=== PATIENT | male | born 1965 | race Caucasian/White ===

== ENCOUNTER 2019-03-08 08:54 | Emergency (ER) | payer SELFPAY ==
[~2019-03-08] VITALS: Ht 188 cm; Wt 108.9 kg
--- NOTE | 2019-03-08 08:54 | NUR ---
Patient BIB [facility] for pre-booking medical screening exam, transferred to chair Busby RN evaluating patient.
[2019-03-08 08:56] VITALS: BP 139/75
--- NOTE | 2019-03-08 09:07 | NUR ---
BROUGHT IN BY OFFICE [facility] A PREBOOK---PT DENIES ANY MEDICAL PROBLEMS AT THIS TIME
--- NOTE | 2019-03-08 09:38 | NUR ---
Dr. Falk is evaluating the patient.
[2019-03-08 10:05] VITALS: BP 136/83
--- NOTE | 2019-03-08 10:05 | NUR ---
PT DISCHARGED AND ALL INSTRUCTIONS PROVIDED TO OFFICER. PATIENT EXAMINED BY DR. REED AND WAS MEDICALLY CLEAR TO BOOK. PATIENT RELEASED IN CUSTODY IN STABLE CONDITION. ORIGINAL PRE-BOOK FORM AND COPY GIVEN TO OFFICER JACKIE.
== END 2019-03-08 10:05 ==
LOC: MED 08:54
DX: I10 Essential (primary) hypertension (principal); F17.200 Nicotine dependence, unspecified, uncomplicated; Z98.890 Other specified postprocedural states
CPT/HCPCS: 99283